=== PATIENT | male | born 1965 | race Caucasian/White ===

== ENCOUNTER 2022-01-12 14:58 | Emergency (ER) | payer MEDICARE, OTHER | END 2022-01-12 16:20 | disposition home or self-care (01) | LOC: ER1 14:58 | DX: J02.9 Acute pharyngitis, unspecified (principal); E11.9 Type 2 diabetes mellitus without complications; I10 Essential (primary) hypertension; Z88.0 Allergy status to penicillin; Z88.6 Allergy status to analgesic agent | CPT/HCPCS: 87081; 87880; 99283 ==

== ENCOUNTER → 2022-05-23 | Outpatient (CLI) | payer MEDICARE | LOC: KOH-I 11:29 | DX: R05.1 Acute cough (principal) | CPT/HCPCS: 71046 ==